=== PATIENT | female | born 1945 | race Caucasian/White ===

== ENCOUNTER 2018-05-25 09:03 | Emergency (ER) | payer MEDICARE, BC ==
--- NOTE | 2018-05-25 09:43 | EDM.PDOC ---
ED HPI GENERAL MEDICAL PROBLEM - General Chief Complaint: Gastrointestinal Problem Stated Complaint: DIARRHEA X3 DAYS Time Seen by Provider: 05/25/18 09:42 - History of Present Illness INITIAL COMMENTS - FREE TEXT/NARRATIVE: 72-year-old female presents with diarrhea. This started on Monday. She multiple loose watery stools nonbloody this continued through Monday started to improve somewhat Monday had a normal day yesterday until late last night where she developed perfuse watery diarrhea multiple episodes. Again nonbloody throughout these episodes she has not had any fevers or chills associated with this. She's not aware of any new exposures. She was on antibiotics a little over a month ago for a dental infection. She has intermittent abdominal cramps and discomfort associated with this Lower Back Pain Score (Numeric/FACES): 7 - Related Data Allergies Allergy/AdvReac Type Severity Reaction Status Date / Time No Known Allergies Allergy Verified 05/25/18 09:19 Home Meds: Home Meds Ascorbic Acid [Vitamin C] 500 mg PO BID 05/25/18 [History] Aspirin 81 mg PO DAILY 05/25/18 [History] Calcium Carbonate/Vitamin D3 [Calcium 600-Vit D3 800 Tab] 1 tab PO BID 05/25/18 [History] Celecoxib [CeleBREX] 200 mg PO DAILY 05/25/18 [History] Cholecalciferol (Vitamin D3) [Vitamin D] 2,000 unit PO DAILY 05/25/18 [History] Past Medical History Musculoskeletal History: Reports: Other (See Below) Other Musculoskeletal History: low back pain - Past Surgical History GI Surgical History: Reports: Appendectomy Musculoskeletal Surgical History: Reports: Other (See Below) Other Musculoskeletal Surgeries/Procedures:: bunion surgery Social & Family History - Family History Family Medical History: Noncontributory - Tobacco Use Smoking Status *Q: Never Smoker Second Hand Smoke Exposure: No - Caffeine Use Caffeine Use: Reports: Coffee - Recreational Drug Use Recreational Drug Use: No ED ROS GENERAL - Review of Systems Review Of Systems: See Below Constitutional: Reports: No Symptoms Respiratory: Reports: No Symptoms Cardiovascular: Reports: No Symptoms GI/Abdominal: Reports: Abdominal Pain, Diarrhea. Denies: Constipation, Nausea, Vomiting : Reports: No Symptoms Neurological: Reports: No Symptoms ED EXAM, GI/ABD - Physical Exam Exam: See Below Exam Limited By: No Limitations General Appearance: Alert, No Apparent Distress Head: Atraumatic, Normocephalic Neck: Normal Inspection, Supple, Non-Tender, Full Range of Motion. No: Lymphadenopathy (L), Lymphadenopathy (R) Respiratory/Chest: No Respiratory Distress, Lungs Clear, Normal Breath Sounds Cardiovascular: Regular Rate, Rhythm, No Edema, No Murmur GI/Abdominal Exam: Normal Bowel Sounds, Soft, Other (Minimal tenderness no rigid guarding or rebound) Back Exam: Normal Inspection. No: CVA Tenderness (L), CVA Tenderness (R) Extremities: Normal Inspection, Redness Neurological: Alert, Oriented Course - Vital Signs Last Recorded V/S: Last Vital Signs Temp 36.7 C 05/25/18 09:15 Pulse 90 05/25/18 09:15 Resp 16 05/25/18 09:15 BP 134/83 05/25/18 09:15 Pulse Ox 96 05/25/18 09:15 - Orders/Labs/Meds Orders: Active Orders 24 hr Category Date Time Status C DIFFICILE BY PCR W/NAP1 [MOLEC] Stat Lab 05/25/18 10:04 Ordered CULTURE STOOL + SHIGATOX [] Stat Lab 05/25/18 09:57 Ordered Lactated Ringers [Ringers, Lactated] 1,000 ml Med 05/25/18 10:00 Active IV ASDIRECTED Medication Orders Lactated Ringer's (Ringers, Lactated) 1,000 mls @ 150 mls/hr IV ASDIRECTED [facility] Labs: Laboratory Tests 05/25/18 05/25/18 05/25/18 Range/Units 10:05 10:05 11:10 WBC 4.27 (3.98-10.04) K/mm3 RBC 4.82 (3.98-5.22) M/mm3 Hgb 15.0 (11.2-15.7) gm/L Hct 45.0 H (34.1-44.9) % MCV 93.4 (79.4-94.8) fl MCH 31.1 (25.6-32.2) pg MCHC 33.3 (32.2-35.5) g/dl RDW Std Deviation 42.6 (36.4-46.3) fL Plt Count 210 (182-369) K/mm3 MPV 10.0 (9.4-12.3) fl Neutrophils % (Manual) 55 (40-60) % Band Neutrophils % 0 (0-10) % Lymphocytes % (Manual) 33 (20-40) % Atypical Lymphs % 0 % Monocytes % (Manual) 10 (2-10) % Eosinophils % (Manual) 2 (0.7-5.8) % Basophils % (Manual) 0 L (0.1-1.2) Platelet Estimate Adequate RBC Morph Comment Normal Sodium 140 (136-145) mEq/L Potassium 3.9 (3.5-5.1) mEq/L Chloride 104 (98-107) mEq/L Carbon Dioxide 21 (21-32) mEq/L Anion Gap 18.9 H (5-15) BUN 22 H (7-18) mg/dL Creatinine 1.4 H (0.55-1.02) mg/dL Est Cr Clr Drug Dosing 26.60 mL/min Estimated GFR (MDRD) 37 (>60) mL/min BUN/Creatinine Ratio 15.7 (14-18) Glucose 84 (83-115) mg/dL Calcium 9.6 (8.5-10.1) mg/dL Total Bilirubin 0.4 (0.2-1.0) mg/dL AST 30 (15-37) U/L ALT 38 (14-59) U/L Alkaline Phosphatase 71 (46-116) U/L Total Protein 8.4 H (6.4-8.2) g/dl Albumin 4.0 (3.4-5.0) g/dl Globulin 4.4 gm/dL Albumin/Globulin Ratio 0.9 L (1-2) Urine Color Yellow (Yellow) Urine Appearance Clear (Clear) Urine pH 5.5 (5.0-8.0) Ur Specific [place] 1.020 (1.005-1.030) Urine Protein 2+ H (Negative) Urine Glucose (UA) Negative (Negative) Urine Ketones 1+ H (Negative) Urine Occult Blood 1+ H (Negative) Urine Nitrite Negative (Negative) Urine Bilirubin 1+ H (Negative) Urine Urobilinogen 0.2 (0.2-1.0) Ur Leukocyte Esterase 1+ H (Negative) Urine RBC 5-10 H (0-5) /hpf Urine WBC 5-10 H (0-5) /hpf Ur Epithelial Cells 10-20 H (0-5) /hpf Urine Bacteria Few (FEW) /hpf Hyaline Casts 10-20 H (0-5) /lpf Urine Mucus Moderate H (FEW) /hpf Meds: Medications Generic Name Dose Route Start Last Admin Trade Name Frefederico PRN Reason Stop Dose Admin Lactated Ringer's 1,000 mls @ 150 mls/hr 05/25/18 10:00 Ringers, Lactated IV ASDIRECTED PORTER Discontinued Medications Generic Name Dose Route Start Last Admin Trade Name Freq PRN Reason Stop Dose Admin Lactated Ringer's 500 mls @ 999 mls/hr 05/25/18 09:58 05/25/18 10:13 Ringers, Lactated IV 05/25/18 10:28 999 mls/hr .BOLUS ONE Administration - Re-Assessments/Exams Free Text/Narrative Re-Assessment/Exam: 05/25/18 12:26 Auditory evaluation unrevealing we have not been able to get a stool culture her urine looks contaminated I did offer to do a catheterization patient declined this. She would like to go home and we will set her up with an outpatient stool study Departure - Departure Time of Disposition: 12:29 Disposition: Home, Self-Care 01 Clinical Impression: Diarrhea - Discharge Information Referrals: Nyla Bell MD [Primary Care Provider] - Forms: ED Department Discharge Additional Instructions: Return to the emergency room with any questions problems worsening symptoms. Return to the lab with your stool specimen when you collect this. Follow-up with your regular provider a couple of days after returning with your stool culture. Try probiotics twice the recommended dose until doing better and then follow the recommended dose for at least a month. - My Orders Last 24 Hours: My Active Orders 05/25/18 09:57 CULTURE STOOL + SHIGATOX [RM] Stat 05/25/18 10:00 Lactated Ringers [Ringers, Lactated] 1,000 ml IV ASDIRECTED 05/25/18 10:04 C DIFFICILE BY PCR W/NAP1 [MOLEC] Stat - Assessment/Plan Last 24 Hours: My Active Orders 05/25/18 09:57 CULTURE STOOL + SHIGATOX [RM] Stat 05/25/18 10:00 Lactated Ringers [Ringers, Lactated] 1,000 ml IV ASDIRECTED 05/25/18 10:04 C DIFFICILE BY PCR W/NAP1 [MOLEC] Stat
[2018-05-25] MEDS ORDERED: Lactated Ringers 500 ML IV ONE (09:58)
[2018-05-25] MEDS ORDERED: Lactated Ringers 1,000 ML IV SCH (10:00)
== END 2018-05-25 13:00 | disposition home or self-care (01) ==
LOC: JD.ED 09:03
DX: R19.7 Diarrhea, unspecified (principal); Z79.82 Long term (current) use of aspirin; Z79.899 Other long term (current) drug therapy
CPT/HCPCS: 36415; 80053; 81001; 85007; 85027; 87046; 87427; 87493; 96365; 96366; 99284; J7120; 99283

== ENCOUNTER 2019-04-03 09:15 | Emergency (ER) | payer MEDICARE, BC ==
--- NOTE | 2019-04-03 10:15 | EDM.PDOC ---
<Celia Marr - Last Filed: 04/03/19 10:41> ED HPI GENERAL MEDICAL PROBLEM - General Chief Complaint: Genitourinary Problem Stated Complaint: DIFFICULTY URINATING Time Seen by Provider: 04/03/19 09:46 Source of Information: Reports: Patient History Limitations: Reports: No Limitations - History of Present Illness INITIAL COMMENTS - FREE TEXT/NARRATIVE: 73-year-old female presents with urinary retention and pelvic cramping for 3 days. She notes that she began drinking plenty of fluids on Monday when she noticed she was having difficulty emptying her bladder. She was concerned that she was dry and possibly developing constipation. She did have a bowel movement on Monday and a small bowel movement yesterday. She describes the urinary retention as an urge to go but feels she is unable to fully empty her bladder. There is no dysuria and she has not noticed any hematuria. She has generalized pelvic pain that she describes as cramping, especially when drinking more water. The patient does have a history of UTIs years ago, but states that her current symptoms do not feel the same as her prior UTIs. She denies flank pain, but does have chronic lower back pain with arthritis, which she is being treated with celebrex. She reported her current symptoms to the [facility] and they informed her she should come to the ED for treatment due to possible urinary stone. The patient does not appear to be in any significant distress. Onset: Gradual (onset Monday ) Duration: Getting Worse Location: Reports: Pelvis Quality: Reports: Other (cramping ) Improves with: Reports: None Worsens with: Reports: None Associated Symptoms: Reports: Loss of Appetite. 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 - Related Data Allergies Allergy/AdvReac Type Severity Reaction Status Date / Time No Known Allergies Allergy Verified 04/03/19 09:38 Home Meds: Home Meds Ascorbic Acid [Vitamin C] 500 mg PO BID 05/25/18 [History] Aspirin 81 mg PO DAILY 05/25/18 [History] Calcium Carbonate/Vitamin D3 [Calcium 600-Vit D3 800 Tab] 1 tab PO BID 05/25/18 [History] Celecoxib [CeleBREX] 200 mg PO DAILY 05/25/18 [History] Cholecalciferol (Vitamin D3) [Vitamin D] 2,000 unit PO DAILY 05/25/18 [History] Levofloxacin [Levaquin] 500 mg PO DAILY #10 tablet 04/03/19 [Rx] metroNIDAZOLE [Flagyl] 500 mg PO Q8H #20 tab 04/03/19 [Rx] Past Medical History Genitourinary History: Reports: UTI, Recurrent (years ago) Musculoskeletal History: Reports: Arthritis, Back Pain, Chronic - Past Surgical History GI Surgical History: Reports: Appendectomy ED ROS GENERAL - Review of Systems Review Of Systems: See Below Constitutional: Reports: Decreased Appetite. Denies: Fever, Chills, Fatigue, Diaphoresis Respiratory: Reports: No Symptoms Cardiovascular: Reports: No Symptoms Endocrine: Reports: No Symptoms GI/Abdominal: Reports: Abdominal Pain (pelvic region and RLQ), Constipation, Decreased Appetite. Denies: Bloody Stool, Diarrhea, Distension, Nausea, Vomiting : Reports: Pain (pelvic, cramping ), Urgency, Urinary Retention. Denies: Dysuria, Flank Pain, Hematuria Musculoskeletal: Reports: Back Pain (lumbar, chronic ), Other (arthritis ) Skin: Reports: No Symptoms Neurological: Reports: No Symptoms Psychiatric: Reports: No Symptoms Hematologic/Lymphatic: Reports: No Symptoms Immunologic: Reports: No Symptoms ED EXAM, RENAL/ - Physical Exam Exam: See Below Exam Limited By: No Limitations General Appearance: Alert, WD/WN, No Apparent Distress Respiratory/Chest: No Respiratory Distress, Lungs Clear, Normal Breath Sounds, No Accessory Muscle Use Cardiovascular: Regular Rate, Rhythm, No Murmur GI/Abdominal: Normal Bowel Sounds, Soft, No Organomegaly, No Distention, Tender (RLQ, pelvic region). No: Guarding, Rigid Back Exam: Normal Inspection, Full Range of Motion. No: CVA Tenderness (L), CVA Tenderness (R) Neurological: Alert, Oriented, Normal Cognition Psychiatric: Normal Affect, Normal Mood Skin Exam: Warm, Dry, Intact, Normal Color, No Rash Course - Vital Signs Last Recorded V/S: Last Vital Signs Temp 97.5 F 04/03/19 09:33 Pulse 105 H 04/03/19 09:33 Resp 18 04/03/19 09:33 BP 118/105 H 04/03/19 09:33 Pulse Ox 98 04/03/19 09:33 - Orders/Labs/Meds Orders: Active Orders 24 hr Category Date Time Status Peripheral IV Care [RC] . DIRECTED Care 04/03/19 11:19 Active CULTURE URINE [RM] Stat Lab 04/03/19 09:29 Received Peripheral IV Insertion Adult [OM.PC] Stat Oth 04/03/19 11:18 Ordered Labs: Laboratory Tests 04/03/19 04/03/19 04/03/19 Range/Units 09:29 10:35 10:35 WBC 14.27 H (3.98-10.04) K/mm3 RBC 4.56 (3.98-5.22) M/mm3 Hgb 13.9 (11.2-15.7) gm/dl Hct 43.6 (34.1-44.9) % MCV 95.6 H (79.4-94.8) fl MCH 30.5 (25.6-32.2) pg MCHC 31.9 L (32.2-35.5) g/dl RDW Std Deviation 42.5 (36.4-46.3) fL Plt Count 312 D (182-369) K/mm3 MPV 9.7 (9.4-12.3) fl Neut % (Auto) 84.1 H (34.0-71.1) % Lymph % (Auto) 10.4 L (19.3-51.7) % [place] % (Auto) 4.8 (4.7-12.5) % Eos % (Auto) 0.4 L (0.7-5.8) Baso % (Auto) 0.1 (0.1-1.2) % Neut # (Auto) 12.00 H (1.56-6.13) K/mm3 Lymph # (Auto) 1.49 (1.18-3.74) K/mm3 [place] # (Auto) 0.68 H (0.24-0.36) K/mm3 Eos # (Auto) 0.05 (0.04-0.36) K/mm3 Baso # (Auto) 0.02 (0.01-0.08) K/mm3 Manual Slide Review Abnormal smear Sodium (136-145) mEq/L Potassium (3.5-5.1) mEq/L Chloride (98-107) mEq/L Carbon Dioxide (21-32) mEq/L Anion Gap (5-15) BUN (7-18) mg/dL Creatinine (0.55-1.02) mg/dL Est Cr Clr Drug Dosing mL/min Estimated GFR (MDRD) (>60) mL/min BUN/Creatinine Ratio (14-18) Glucose (83-115) mg/dL Calcium (8.5-10.1) mg/dL Total Bilirubin (0.2-1.0) mg/dL AST (15-37) U/L ALT (14-59) U/L Alkaline Phosphatase (46-116) U/L C-Reactive Protein 2.0 H* (<1.0) mg/dL Total Protein (6.4-8.2) g/dl Albumin (3.4-5.0) g/dl Globulin gm/dL Albumin/Globulin Ratio (1-2) Urine Color Light yellow (Yellow) Urine Appearance Clear (Clear) Urine pH 6.0 (5.0-8.0) Ur Specific [place] 1.020 (1.005-1.030) Urine Protein Negative (Negative) Urine Glucose (UA) Negative (Negative) Urine Ketones Negative (Negative) Urine Occult Blood Trace-lysed H (Negative) Urine Nitrite Negative (Negative) Urine Bilirubin Negative (Negative) Urine Urobilinogen 0.2 (0.2-1.0) Ur Leukocyte Esterase Negative (Negative) Urine RBC 0-5 (0-5) /hpf Urine WBC 0-5 (0-5) /hpf Ur Epithelial Cells 0-5 (0-5) /hpf Urine Bacteria Rare (FEW) /hpf Hyaline Casts 0-5 (0-5) /lpf Urine Mucus Not seen (FEW) /hpf 04/03/19 Range/Units 10:35 WBC (3.98-10.04) K/mm3 RBC (3.98-5.22) M/mm3 Hgb (11.2-15.7) gm/dl Hct (34.1-44.9) % MCV (79.4-94.8) fl MCH (25.6-32.2) pg MCHC (32.2-35.5) g/dl RDW Std Deviation (36.4-46.3) fL Plt Count (182-369) K/mm3 MPV (9.4-12.3) fl Neut % (Auto) (34.0-71.1) % Lymph % (Auto) (19.3-51.7) % [place] % (Auto) (4.7-12.5) % Eos % (Auto) (0.7-5.8) Baso % (Auto) (0.1-1.2) % Neut # (Auto) (1.56-6.13) K/mm3 Lymph # (Auto) (1.18-3.74) K/mm3 [place] # (Auto) (0.24-0.36) K/mm3 Eos # (Auto) (0.04-0.36) K/mm3 Baso # (Auto) (0.01-0.08) K/mm3 Manual Slide Review Sodium 143 (136-145) mEq/L Potassium 3.5 (3.5-5.1) mEq/L Chloride 104 (98-107) mEq/L Carbon Dioxide 26 (21-32) mEq/L Anion Gap 16.5 H (5-15) BUN 18 (7-18) mg/dL Creatinine 1.1 H (0.55-1.02) mg/dL Est Cr Clr Drug Dosing 31.74 mL/min Estimated GFR (MDRD) 48 (>60) mL/min BUN/Creatinine Ratio 16.4 (14-18) Glucose 102 (83-115) mg/dL Calcium 9.8 (8.5-10.1) mg/dL Total Bilirubin 0.4 (0.2-1.0) mg/dL AST 22 (15-37) U/L ALT 29 (14-59) U/L Alkaline Phosphatase 81 (46-116) U/L C-Reactive Protein (<1.0) mg/dL Total Protein 8.5 H (6.4-8.2) g/dl Albumin 4.0 (3.4-5.0) g/dl Globulin 4.5 gm/dL Albumin/Globulin Ratio 0.9 L (1-2) Urine Color (Yellow) Urine Appearance (Clear) Urine pH (5.0-8.0) Ur Specific [place] (1.005-1.030) Urine Protein (Negative) Urine Glucose (UA) (Negative) Urine Ketones (Negative) Urine Occult Blood (Negative) Urine Nitrite (Negative) Urine Bilirubin (Negative) Urine Urobilinogen (0.2-1.0) Ur Leukocyte Esterase (Negative) Urine RBC (0-5) /hpf Urine WBC (0-5) /hpf Ur Epithelial Cells (0-5) /hpf Urine Bacteria (FEW) /hpf Hyaline Casts (0-5) /lpf Urine Mucus (FEW) /hpf Meds: Medications Discontinued Medications Generic Name Dose Route Start Last Admin Trade Name Freq PRN Reason Stop Dose Admin Diatrizoate Meglum/Diatrizoate Sod 90 ml 04/03/19 11:45 Gastrografin 37% PO 04/03/19 11:46 ONETIME ONE Sodium Chloride 1,000 mls @ 999 mls/hr 04/03/19 11:30 04/03/19 11:30 Normal Saline IV 999 mls/hr ONETIME PORTER Administration Sodium Chloride 100 mls @ 60 mls/hr 04/03/19 11:45 Normal Saline IV ASDIRECTED PORTER Iopamidol 100 ml 04/03/19 11:45 Isovue-300 (61%) IVPUSH 04/03/19 11:46 ONETIME ONE Phenazopyridine HCl 95 mg 04/03/19 11:21 04/03/19 11:31 Urinary Pain Relief PO 04/03/19 11:22 95 mg ONETIME ONE Administration Sodium Chloride 10 ml 04/03/19 11:18 Saline Flush FLUSH ASDIRECTED PRN Keep Vein Open Sodium Chloride 10 ml 04/03/19 11:45 Saline Flush FLUSH 04/03/19 11:46 ONETIME ONE Departure - Departure Disposition: Home, Self-Care 01 Clinical Impression: Diverticulitis - Discharge Information Prescriptions: Levofloxacin [Levaquin] 500 mg PO DAILY #10 tablet metroNIDAZOLE [Flagyl] 500 mg PO Q8H #20 tab Instructions: Diverticulitis Referrals: Nyla Bell MD [Primary Care Provider] - Forms: ED Department Discharge Additional Instructions: Clear liquids and very bland diet as tolerated eating just small amounts of food at a time for the next 2-3 days especially. Than slowly and gradually advance diet as tolerated. Levaquin antibiotic 500 mg daily for 10 days, no antibiotic 500 mg 3 times daily for 1 week or until gone. These prescriptions have been sent [facility] to [facility]. Probiotic twice daily for the next 10 days and then you can safely go back to once daily. Follow-up [facility] in about 5-6 days for recheck. Return to ED as needed if symptoms worsening in any way. Sepsis Event Note - Focused Exam Date Exam was Performed: 04/03/19 Time Exam was Performed: 10:41 - My Orders Last 24 Hours: My Active Orders 04/03/19 09:29 CULTURE URINE [RM] Stat 04/03/19 11:18 Peripheral IV Insertion Adult [OM.PC] Stat 04/03/19 11:19 Peripheral IV Care [RC] . DIRECTED - Assessment/Plan Last 24 Hours: My Active Orders 04/03/19 09:29 CULTURE URINE [RM] Stat 04/03/19 11:18 Peripheral IV Insertion Adult [OM.PC] Stat 04/03/19 11:19 Peripheral IV Care [RC] . DIRECTED <Luis Richard - Last Filed: 04/04/19 07:22> ED HPI GENERAL MEDICAL PROBLEM Abdominal Pain Score (Numeric/FACES): 4 Past Medical History Musculoskeletal History: Reports: Other (See Below) Other Musculoskeletal History: low back pain - Past Surgical History GI Surgical History: Reports: Appendectomy Musculoskeletal Surgical History: Reports: Other (See Below) Other Musculoskeletal Surgeries/Procedures:: bunion surgery Social & Family History - Family History Family Medical History: Noncontributory - Tobacco Use Smoking Status *Q: Never Smoker - Caffeine Use Caffeine Use: Reports: None - Recreational Drug Use Recreational Drug Use: No Course - Orders/Labs/Meds Labs: Laboratory Tests 04/03/19 04/03/19 04/03/19 Range/Units 09:29 10:35 10:35 WBC 14.27 H (3.98-10.04) K/mm3 RBC 4.56 (3.98-5.22) M/mm3 Hgb 13.9 (11.2-15.7) gm/dl Hct 43.6 (34.1-44.9) % MCV 95.6 H (79.4-94.8) fl MCH 30.5 (25.6-32.2) pg MCHC 31.9 L (32.2-35.5) g/dl RDW Std Deviation 42.5 (36.4-46.3) fL Plt Count 312 D (182-369) K/mm3 MPV 9.7 (9.4-12.3) fl Neut % (Auto) 84.1 H (34.0-71.1) % Lymph % (Auto) 10.4 L (19.3-51.7) % [place] % (Auto) 4.8 (4.7-12.5) % Eos % (Auto) 0.4 L (0.7-5.8) Baso % (Auto) 0.1 (0.1-1.2) % Neut # (Auto) 12.00 H (1.56-6.13) K/mm3 Lymph # (Auto) 1.49 (1.18-3.74) K/mm3 [place] # (Auto) 0.68 H (0.24-0.36) K/mm3 Eos # (Auto) 0.05 (0.04-0.36) K/mm3 Baso # (Auto) 0.02 (0.01-0.08) K/mm3 Manual Slide Review Abnormal smear Sodium (136-145) mEq/L Potassium (3.5-5.1) mEq/L Chloride (98-107) mEq/L Carbon Dioxide (21-32) mEq/L Anion Gap (5-15) BUN (7-18) mg/dL Creatinine (0.55-1.02) mg/dL Est Cr Clr Drug Dosing mL/min Estimated GFR (MDRD) (>60) mL/min BUN/Creatinine Ratio (14-18) Glucose (83-115) mg/dL Calcium (8.5-10.1) mg/dL Total Bilirubin (0.2-1.0) mg/dL AST (15-37) U/L ALT (14-59) U/L Alkaline Phosphatase (46-116) U/L C-Reactive Protein 2.0 H* (<1.0) mg/dL Total Protein (6.4-8.2) g/dl Albumin (3.4-5.0) g/dl Globulin gm/dL Albumin/Globulin Ratio (1-2) Urine Color Light yellow (Yellow) Urine Appearance Clear (Clear) Urine pH 6.0 (5.0-8.0) Ur Specific [place] 1.020 (1.005-1.030) Urine Protein Negative (Negative) Urine Glucose (UA) Negative (Negative) Urine Ketones Negative (Negative) Urine Occult Blood Trace-lysed H (Negative) Urine Nitrite Negative (Negative) Urine Bilirubin Negative (Negative) Urine Urobilinogen 0.2 (0.2-1.0) Ur Leukocyte Esterase Negative (Negative) Urine RBC 0-5 (0-5) /hpf Urine WBC 0-5 (0-5) /hpf Ur Epithelial Cells 0-5 (0-5) /hpf Urine Bacteria Rare (FEW) /hpf Hyaline Casts 0-5 (0-5) /lpf Urine Mucus Not seen (FEW) /hpf 04/03/19 Range/Units 10:35 WBC (3.98-10.04) K/mm3 RBC (3.98-5.22) M/mm3 Hgb (11.2-15.7) gm/dl Hct (34.1-44.9) % MCV (79.4-94.8) fl MCH (25.6-32.2) pg MCHC (32.2-35.5) g/dl RDW Std Deviation (36.4-46.3) fL Plt Count (182-369) K/mm3 MPV (9.4-12.3) fl Neut % (Auto) (34.0-71.1) % Lymph % (Auto) (19.3-51.7) % [place] % (Auto) (4.7-12.5) % Eos % (Auto) (0.7-5.8) Baso % (Auto) (0.1-1.2) % Neut # (Auto) (1.56-6.13) K/mm3 Lymph # (Auto) (1.18-3.74) K/mm3 [place] # (Auto) (0.24-0.36) K/mm3 Eos # (Auto) (0.04-0.36) K/mm3 Baso # (Auto) (0.01-0.08) K/mm3 Manual Slide Review Sodium 143 (136-145) mEq/L Potassium 3.5 (3.5-5.1) mEq/L Chloride 104 (98-107) mEq/L Carbon Dioxide 26 (21-32) mEq/L Anion Gap 16.5 H (5-15) BUN 18 (7-18) mg/dL Creatinine 1.1 H (0.55-1.02) mg/dL Est Cr Clr Drug Dosing 31.74 mL/min Estimated GFR (MDRD) 48 (>60) mL/min BUN/Creatinine Ratio 16.4 (14-18) Glucose 102 (83-115) mg/dL Calcium 9.8 (8.5-10.1) mg/dL Total Bilirubin 0.4 (0.2-1.0) mg/dL AST 22 (15-37) U/L ALT 29 (14-59) U/L Alkaline Phosphatase 81 (46-116) U/L C-Reactive Protein (<1.0) mg/dL Total Protein 8.5 H (6.4-8.2) g/dl Albumin 4.0 (3.4-5.0) g/dl Globulin 4.5 gm/dL Albumin/Globulin Ratio 0.9 L (1-2) Urine Color (Yellow) Urine Appearance (Clear) Urine pH (5.0-8.0) Ur Specific [place] (1.005-1.030) Urine Protein (Negative) Urine Glucose (UA) (Negative) Urine Ketones (Negative) Urine Occult Blood (Negative) Urine Nitrite (Negative) Urine Bilirubin (Negative) Urine Urobilinogen (0.2-1.0) Ur Leukocyte Esterase (Negative) Urine RBC (0-5) /hpf Urine WBC (0-5) /hpf Ur Epithelial Cells (0-5) /hpf Urine Bacteria (FEW) /hpf Hyaline Casts (0-5) /lpf Urine Mucus (FEW) /hpf Meds: Medications Discontinued Medications Generic Name Dose Route Start Last Admin Trade Name Freq PRN Reason Stop Dose Admin Diatrizoate Meglum/Diatrizoate Sod 90 ml 04/03/19 11:45 Gastrografin 37% PO 04/03/19 11:46 ONETIME ONE Sodium Chloride 1,000 mls @ 999 mls/hr 04/03/19 11:30 04/03/19 11:30 Normal Saline IV 999 mls/hr ONETIME PORTER Administration Sodium Chloride 100 mls @ 60 mls/hr 04/03/19 11:45 Normal Saline IV ASDIRECTED PORTER Iopamidol 100 ml 04/03/19 11:45 Isovue-300 (61%) IVPUSH 04/03/19 11:46 ONETIME ONE Phenazopyridine HCl 95 mg 04/03/19 11:21 04/03/19 11:31 Urinary Pain Relief PO 04/03/19 11:22 95 mg ONETIME ONE Administration Sodium Chloride 10 ml 04/03/19 11:18 Saline Flush FLUSH ASDIRECTED PRN Keep Vein Open Sodium Chloride 10 ml 04/03/19 11:45 Saline Flush FLUSH 04/03/19 11:46 ONETIME ONE - Re-Assessments/Exams Free Text/Narrative Re-Assessment/Exam: 04/03/19 11:58 Initial hx and exam was done by Fatoumata Alegre PA student. I agree with her hx and exam as documented. I have also interviewed and examined patient. We did do a bladder scan shortly after she voided and her bladder was empty. With her sx of severe urgency and frequency it was expected to find a UTI. However Ua did come back neg for UTI dipstick and micro. Her WBC is elevated at around 14,000 and CRP very mildly elevated at 2. I feel we had better do a CT to look for other potential problems lower abd a pelvis. Pt is agreeable with that. Creat. 1.1, will give liter of NS prior to doing the CT. 04/04/19 07:21. CT came back showing diverticulitis. She is afebrile, eating and drinking OK, she feels up to going home and taking outpatient antibiotics, Will start her on levaquin and cipro. Urine culture also has been done. Departure - Departure Time of Disposition: 14:23 Condition: Fair Sepsis Event Note - Evaluation Sepsis Screening Result: No Definite Risk - Focused Exam Date Exam was Performed: 04/04/19 Time Exam was Performed: 07:21
--- NOTE | 2019-04-03 11:01 | CR ---
Abdomen: Supine and upright views of the abdomen were obtained. Comparison: No previous abdominal x-ray. Scoliosis and degenerative change is noted within the spine. Bowel gas pattern appears normal. No free air is seen. No abnormal calcifications are seen. Impression: 1. Findings as noted above. 2. Nothing acute is seen on two-view abdominal x-ray. Diagnostic code #2 This report was dictated in [place] Standard Time
[2019-04-03] MEDS ORDERED: Sodium Chloride 0.9% 10 ML Syringe FLUSH PRN (11:18)
[2019-04-03] MEDS ORDERED: Phenazopyridine 95 MG Tab PO ONE (11:21)
[2019-04-03] MEDS ORDERED: Sodium Chloride 0.9% 1,000 ML IV SCH (11:30)
[2019-04-03] MEDS ORDERED: Diatrizoate Meglumine/Diatrizoate Sodium 37% 120 ML Bottle PO ONE (11:45)
[2019-04-03] MEDS ORDERED: Sodium Chloride 0.9% 10 ML Syringe FLUSH ONE (11:45)
[2019-04-03] MEDS ORDERED: Iopamidol 612 MG/ML 100 ML Bottle IVPUSH ONE (11:45)
[2019-04-03] MEDS ORDERED: Sodium Chloride 0.9% 100 ML IV SCH (11:45)
--- NOTE | 2019-04-03 13:37 | CT ---
CT abdomen and pelvis Technique: Multiple axial sections were obtained from above the dome of the diaphragm inferiorly through the pubic symphysis. Intravenous and oral contrast was utilized. Delayed images were obtained through the bladder. Comparison: Prior abdominal x-ray performed earlier on the same day, no previous CT abdomen or pelvis study is available. Findings: Visualized lung bases show nothing acute. Liver shows a small low density abnormality within the periphery of the right lobe measuring 7 mm. This is too small to characterize by Hounsfield unit measurements but most likely represents a minimal cyst. Additional second lesion is seen off the periphery of the lower right lobe of the liver measuring 3 mm. This is also too small to characterize by Hounsfield unit measurements but most likely represents an additional cyst. Kidneys show symmetric contrast enhancement. Extrarenal pelves are noted within both kidneys. Delayed images show contrast within the bladder. Spleen appears within normal limits. Adrenal glands show no nodule. Pancreas is within normal limits. Gallbladder contains no calcified gallstones. Aorta shows atherosclerotic change without aneurysm. No pelvic mass or adenopathy is seen. Diverticulosis is noted within the sigmoid colon. Mild inflammatory change is seen around this area of diverticulosis and findings felt compatible with mild diverticulitis. No free fluid is seen. No evidence of diverticular abscess is seen. Bone window settings were reviewed which show diffuse disc space narrowing throughout the spine with endplate sclerosis and osteophytes. Degenerative apophyseal change is also seen within the mid and lower lumbar spine. Impression: 1. Findings compatible with mild sigmoid diverticulitis. No diverticular abscess is seen. 2. Other findings believed to be incidental as described above. Diagnostic code #3 Study was dictated in [place] Standard Time
== END 2019-04-03 14:39 | disposition home or self-care (01) ==
LOC: JD.ED 09:15
DX: K57.32 Diverticulitis of large intestine without perforation or abscess without bleeding (principal); R33.9 Retention of urine, unspecified; Z79.82 Long term (current) use of aspirin; Z90.49 Acquired absence of other specified parts of digestive tract
CPT/HCPCS: 36415; 51798; 74019; 74177; 80053; 81001; 85025; 86140; 87086; 96360; 99284; A9270; J7030; Q9963

== ENCOUNTER 2019-11-25 18:21 | Emergency (ER) | payer MEDICARE, BC ==
--- NOTE | 2019-11-25 19:03 | EDM.PDOC ---
ED HPI GENERAL MEDICAL PROBLEM - General Chief Complaint: Upper Extremity Injury/Pain Stated Complaint: ARM INJURY FROM FALL Time Seen by Provider: 11/25/19 18:42 Source of Information: Reports: Patient History Limitations: Reports: No Limitations - History of Present Illness INITIAL COMMENTS - FREE TEXT/NARRATIVE: Mrs. Fraser is a very pleasant 74-year-old woman who now presents the ED after injuring her left wrist. She states that she slipped and fell around 13:00, and when she did so, she states that she fell backwards, and put her left hand out to brace her fall. While she fell onto her buttocks, she does not complain of any lower back or buttock pain. She did not strike her head. She did not take any [id number] or home remedies prior to coming to the ED, however, the triage note indicates that she presented with a Velcro wrist splint. No prior left wrist injury. Here in the ED, the patient's initial BP was found to be modestly elevated at 151/77, otherwise, she is hemodynamically stable, afebrile, saturating 99% on room air. Other than today's left wrist injury, the patient denies having a recent fever, chills, sore throat, ear pain, nasal or sinus congestion, cough, dyspnea, chest pain, palpitations, nausea, vomiting, constipation, diarrhea, abdominal pain, urinary symptoms, recent weight gain or weight loss, recent bloody bowel movements or black bowel movements, recent joint aches, headaches, or rashes. The patient's PCP is Dr. Nyla Bell, at [facility], however, she also sees RUDY Mckeon, for relatively minor issues. Left Wrist Pain Score (Numeric/FACES): 3 - Related Data Allergies Allergy/AdvReac Type Severity Reaction Status Date / Time No Known Allergies Allergy Verified 11/25/19 18:39 Home Meds: Home Meds Calcium Carbonate/Vitamin D3 [Calcium 600-Vit D3 800 Tab] 1 tab PO BID 05/25/18 [History] Celecoxib [CeleBREX] 200 mg PO DAILY 05/25/18 [History] Loratadine [Claritin] 10 mg PO DAILY PRN 11/25/19 [History] Lutein/Minerals/Vit A,C & E [Ocuvite] 1 tab PO DAILY 11/25/19 [History] Past Medical History Cardiovascular History: Reports: High Cholesterol (untreated) Musculoskeletal History: Reports: Arthritis - Past Surgical History HEENT Surgical History: Reports: Oral Surgery (wisdom teeth extraction) GI Surgical History: Reports: Appendectomy Musculoskeletal Surgical History: Reports: Amputation (left 2nd finger, as a child), Other (See Below) (Left bunionectomy x 1, right bunionectomy x 2) Social & Family History - Family History Family Medical History: Noncontributory - Tobacco Use Smoking Status *Q: Never Smoker Second Hand Smoke Exposure: No - Caffeine Use Caffeine Use: Reports: None - Alcohol Use Alcohol Use History: Yes Alcohol Use Frequency: Socially - Recreational Drug Use Recreational Drug Use: No - Living Situation & Occupation Living situation: Reports: , with Spouse Occupation: Retired Review of Systems - Review of Systems Review Of Systems: Comprehensive ROS is negative, except as noted in HPI. Musculoskeletal: Reports: Back Pain (chronic) ED EXAM, GENERAL - Physical Exam Exam: See Below Exam Limited By: No Limitations General Appearance: Alert, WD/WN, No Apparent Distress Extremities: Other (No visible abnormality to the left wrist, such as swelling, erythema, ecchymosis, abrasion, or deformity. The patient has tenderness prima rily to the distal radius, with no significant tenderness to the distal ulna or proximal carpal bones. 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 Neurovascular status of the left upper extremity is intact.) Course - Vital Signs Last Recorded V/S: Last Vital Signs Temp 36.6 C 11/25/19 18:36 Pulse 92 11/25/19 18:36 Resp 16 11/25/19 18:36 BP 151/77 H 11/25/19 18:36 Pulse Ox 99 11/25/19 18:36 - Orders/Labs/Meds Orders: Active Orders 24 hr Category Date Time Status Wrist Comp Min 3V Lt [CR] Stat Exams 11/25/19 18:57 Taken - Re-Assessments/Exams Free Text/Narrative Re-Assessment/Exam: 11/25/19 18:58 As above, the patient slipped and fell onto an outstretched left hand around 13:00 this afternoon. She has pain along the midline dorsal aspect of her hand and wrist, and tenderness to palpation over the distal radius, but no significant tenderness elsewhere, and there are no visible abnormalities on examination. I have ordered x-rays to evaluate for a distal radius fracture. The patient declined an offer for pain medication at this time. 11/25/19 19:24 5-view radiographs of the left wrist appear to be grossly normal, with osteopenia but no fractures or dislocations seen. Formal read per the Radiologist pending. 11/25/19 19:37 X-ray results discussed with the patient. The patient can continue to wear her Velcro wrist brace as needed. I would like her to ice her left wrist several times a day for the next few days. She can continue to take the Celebrex that she is already on. Departure - Departure Time of Disposition: 19:37 Disposition: Home, Self-Care 01 Condition: Good Clinical Impression: Left wrist sprain - Discharge Information *PRESCRIPTION DRUG MONITORING PROGRAM REVIEWED*: Not Applicable *COPY OF PRESCRIPTION DRUG MONITORING REPORT IN PATIENT SHANIKA: Not Applicable Referrals: Nyla Bell MD [Ordering Only Provider] - Lasha Li PA-C [Physician Film Archivist] - Forms: ED Department Discharge Additional Instructions: You were seen in the ER after slipping and falling, injuring your left wrist. Work-up in the ER included x-rays of the left wrist, which showed some bone thinning, but no broken bones or dislocations. Based on your history, physical exam, and ER x-rays, you have most likely sprained your left wrist. We recommend that you apply an ice pack to the painful part of your wrist for 10 to 15 minutes, up to 5 times a day, for the next 2 to 3 days. You can continue to use the Velcro wrist splint, to avoid further injury, over the next few days. We recommend that you continue to take your previously prescribed Celebrex. If any other problems, please do not hesitate to return to the ER. Sepsis Event Note (ED) - Evaluation Sepsis Screening Result: No Definite Risk - Focused Exam Vital Signs: Vital Signs Temp Pulse Resp BP Pulse Ox 11/25/19 18:36 36.6 C 92 16 151/77 H 99 - My Orders Last 24 Hours: My Active Orders 11/25/19 18:57 Wrist Comp Min 3V Lt [CR] Stat - Assessment/Plan Last 24 Hours: My Active Orders 11/25/19 18:57 Wrist Comp Min 3V Lt [CR] Stat
--- NOTE | 2019-11-25 20:01 | CR ---
Left wrist: 4 views left wrist were obtained. Comparison: No previous wrist study. Slightly impacted fracture is believed to be present within the distal radius involving the metaphysis. Small masha of bone is noted off the ulnar styloid process likely relating to old injury. Soft tissue swelling is noted. Moderate degenerative change within the CMC joint of the thumb. Joint space narrowing noted off the distal navicular bone. Impression: 1. Findings suspicious for slightly impacted distal left radial fracture. 2. Other findings as noted above which are nonacute. Diagnostic code #3 This report was dictated in MDT
== END 2019-11-25 19:49 | disposition home or self-care (01) ==
LOC: JD.ED 18:21
DX: S63.502A Unspecified sprain of left wrist, initial encounter (principal); M19.90 Unspecified osteoarthritis, unspecified site; Z79.899 Other long term (current) drug therapy; W01.0XXA Fall on same level from slipping, tripping and stumbling without subsequent striking against object, initial encounter
CPT/HCPCS: 73110-26-LT; 73110-LT; 99282; 99283-25

== ENCOUNTER 2020-04-21 18:55 | Emergency (ER) | payer MEDICARE, BC ==
--- NOTE | 2020-04-21 20:19 | EDM.PDOC ---
ED HPI GENERAL MEDICAL PROBLEM - General Chief Complaint: Cardiovascular Problem Stated Complaint: LEFT ARM PAIN HIGH BLOOD PRESSURE Time Seen by Provider: 04/21/20 19:15 Source of Information: Reports: Patient, Family () History Limitations: Reports: No Limitations - History of Present Illness INITIAL COMMENTS - FREE TEXT/NARRATIVE: Mrs. Fraser is a pleasant 74-year-old woman with a past medical history significant for untreated dyslipidemia, but with no history of hypertension, as well as a longstanding history of osteoarthritis, primarily involving her hands. She is under the care of a [facility], and has received steroid injections to all of her MCP joints, and there has even been some discussion of joint replacement. In the past, the arthritis in her left hand was worse than her right, and involved some swelling, but she tells me that over the past couple of months, she has also developed some swelling in her right hand. She has been taking celecoxib for years, although she states that it has not been as effective at controlling her pain of late. She states that she saw one of her PCPs recently, and that blood work was performed to evaluate for rheumatoid arthritis, which returned negative. Her other PCP subsequently suggested that she switch from celecoxib to meloxicam, however, the patient did not follow-up on this. The patient would like to follow-up with a [employer] to see what their recommendation for pain management would be. The patient now presents to the ED after developing mid-upper left arm pain yesterday, 04/20/2020. She does not recall suffering any sort of injury or strain to the arm. She states that it is worse today. She is concerned that it is somehow related to an expansion of her hand arthritis. The patient went to the [facility], for evaluation. They found her blood pressure to be elevated. They performed an ECG, finding no abnormalities, nevertheless, they recommended that she come to the ED, expressing concern that she might be suffering from a DVT in her left upper extremity, or a heart attack, or stroke. Because the patient has untreated cholesterol, she is very concerned that she is suffering from a stroke. Here in the ED, the patient's initial BP is found to be elevated at 184/103, however, decreased to the 150s while I was talking to her, without treatment. She is otherwise hemodynamically stable, afebrile, saturating 96% on room air. Other than the patient's chronic arthritic pain in her hands, prior to yesterday, the patient denies having a recent fever, chills, sore throat, ear pain, nasal or sinus congestion, cough, dyspnea, chest pain, palpitations, nausea, vomiting, constipation, diarrhea, abdominal pain, urinary symptoms, recent weight gain or weight loss, recent bloody bowel movements or black bowel movements, headaches, or rashes. The patient's PCP for more significant conditions is Dr. Nyla Bell, at [facility]. Her PCP for less significant conditions is RUDY Mckeon. She does not recall the name of her Orthopedic Surgeon at [facility]. Left Upper Arm Pain Score (Numeric/FACES): 5 - Related Data Allergies Allergy/AdvReac Type Severity Reaction Status Date / Time No Known Allergies Allergy Verified 04/21/20 19:06 Home Meds: Home Meds Calcium Carbonate/Vitamin D3 [Calcium 600-Vit D3 800 Tab] 1 tab PO BID 05/25/18 [History] Celecoxib [CeleBREX] 200 mg PO DAILY 05/25/18 [History] Loratadine [Claritin] 10 mg PO DAILY PRN 11/25/19 [History] Lutein/Minerals/Vit A,C & E [Ocuvite] 1 tab PO DAILY 11/25/19 [History] Past Medical History Cardiovascular History: Reports: High Cholesterol (untreated) Respiratory History: Reports: Sleep Apnea (nightly CPAP 3) Musculoskeletal History: Reports: Fracture (left shoulder), Osteoarthritis - Past Surgical History HEENT Surgical History: Reports: Oral Surgery (dental extractions) GI Surgical History: Reports: Appendectomy Musculoskeletal Surgical History: Reports: Amputation (left 2nd finger as a child), Other (See Below) (Left bunionectomy x 1, Right bunionectomy x 2) Social & Family History - Tobacco Use Tobacco Use Status *Q: Never Tobacco User - Caffeine Use Caffeine Use: Reports: None - Alcohol Use Alcohol Use History: Yes Alcohol Use Frequency: Socially - Recreational Drug Use Recreational Drug Use: No - Living Situation & Occupation Living situation: Reports: , with Spouse Occupation: Retired ED ROS GENERAL - Review of Systems Review Of Systems: Comprehensive ROS is negative, except as noted in HPI. ED EXAM, GENERAL - Physical Exam Exam: See Below Exam Limited By: No Limitations General Appearance: Alert, WD/WN, No Apparent Distress Eye Exam: Bilateral Eye: EOMI, Normal Inspection Ears: Normal External Exam, Hearing Grossly Normal Nose: Normal Inspection Throat/Mouth: Normal Inspection, Normal Lips, Normal Voice, No Airway Compromise Head: Atraumatic, Normocephalic Neck: Normal Inspection, Full Range of Motion Respiratory/Chest: No Respiratory Distress, Lungs Clear, Normal Breath Sounds, No Accessory Muscle Use Cardiovascular: Normal Peripheral Pulses, Regular Rate, Rhythm, No Edema, No Gallop, No JVD, No Murmur, No Rub Peripheral Pulses: 3+: Radial (L), Radial (R) GI/Abdominal: Normal Bowel Sounds, Soft, Non-Tender, No Organomegaly, No Distention, No Abnormal Bruit, No Mass Back Exam: Normal Inspection, Full Range of Motion, NT Extremities: Normal Range of Motion, No Pedal Edema, Normal Capillary Refill, Other (Reproducible tenderness to palpation of the patient's left triceps mu scle. No visible abnormality to the area, such as swelling, erythema, ecchymosis, or abrasion. The circumference of the mid-upper left arm is 25.5 cm. The circumference of the mid-upper right arm is 25.5 cm.) Neurological: Alert, Oriented, Normal Cognition, No Motor/Sensory Deficits Psychiatric: Normal Affect Skin Exam: Warm, Dry, Intact, Normal Color, No Rash #1 Interpretation EKG Date: 04/21/20 Time: 19:21 Rhythm: NSR Rate (Beats/Min): 64 [place]: Normal P-Wave: Present QRS: Normal ST-T: Normal QT: Normal Comparison: NA - No Prior EKG Course - Vital Signs Last Recorded V/S: Last Vital Signs Temp 37.1 C 04/21/20 19:02 Pulse 98 04/21/20 19:02 Resp 16 04/21/20 19:02 BP 184/103 H 04/21/20 19:02 Pulse Ox 96 04/21/20 19:02 - Orders/Labs/Meds Orders: Active Orders 24 hr Category Date Time Status EKG 12 Lead [EK] Stat Ther 04/21/20 19:07 Ordered - Re-Assessments/Exams Free Text/Narrative Re-Assessment/Exam: 04/21/20 20:12 I spoke with the patient at great length regarding her left upper extremity pain and elevated blood pressure. The patient had gone to the [facility] where an ECG was obtained, and she was told that she should come to the ED for evaluation, since her left upper extremity pain might be due to a DVT, heart attack, or stroke. While her initial BP was significantly elevated at 184/103, that is still far short of a level that would require medical treatment, particularly since this is a spurious elevation; the patient states that her BP ordinarily runs low. Additionally, her BP dropped into the 150s while we were talking, without any medical treatment whatsoever. On examination, the patient's left mid-arm pain is reproducible with palpation of her left triceps muscle, indicating a musculoskeletal etiology. Although she does not recall doing it, she likely strained the muscle somehow yesterday or the day before. I reassured her that it has nothing to do with her arthritis (there are no joints in the middle of the arm), nor with a stroke. I explained that strokes cause focal neurologic deficits, but not pain, and certainly not reproducible tenderness. I also explained that while a heart attack can cause radiation of pain to the left upper extremity, it would not cause reproducible tenderness to the arm itself. Additionally, the patient has no other symptoms concerning for an acute IL, and an ECG, obtained at triage, is unremarkable. Lastly, the circumference of the patient's left mid-arm is 25.5 cm, identical to that of her right mid-arm, therefore a DVT in the upper extremity is highly unlikely, particularly because the patient denies any recent instrumentation of her arm. I offered to order a Doppler ultrasound of the arm to evaluate for a DVT, which she eventually declined. I believe I was eventually able to convince the patient that nothing serious is going on, although how she feels after she leaves the ED is questionable. Departure - Departure Time of Disposition: 20:15 Disposition: Home, Self-Care 01 Condition: Good Clinical Impression: Osteoarthritis, Strain of left triceps muscle Instructions: Osteoarthritis, Muscle Strain, [id number] Referrals: Nyla Bell MD [Primary Care Provider] - Lasha Li PA-C [Physician Clerk Typist] - Forms: ED Department Discharge Additional Instructions: You were seen in the emergency room after developing upper left arm pain, with elevated blood pressure noted today. Work-up in the ER included an ECG, which returned essentially normal. There is no suggestion that you are having a heart attack. Your blood pressure significantly improved during your ER visit, without any treatment. Based on your history and physical examination, the cause of your upper left arm pain is due to strain of your triceps muscle. We recommend that you follow-up with your PCP, Dr. Bell, to discuss the option of switching from celecoxib (Celebrex) to meloxicam (Mobic). If any other problems, please do not hesitate to return to the ER. Sepsis Event Note (ED) - Evaluation Sepsis Screening Result: No Definite Risk - Focused Exam Vital Signs: Vital Signs Temp Pulse Resp BP Pulse Ox 04/21/20 19:02 37.1 C 98 16 184/103 H 96 - My Orders Last 24 Hours: My Active Orders 04/21/20 19:07 EKG 12 Lead [EK] Stat - Assessment/Plan Last 24 Hours: My Active Orders 04/21/20 19:07 EKG 12 Lead [EK] Stat
== END 2020-04-21 20:33 | disposition home or self-care (01) ==
LOC: JD.ED 18:55
DX: S46.312A Strain of muscle, fascia and tendon of triceps, left arm, initial encounter (principal); M19.90 Unspecified osteoarthritis, unspecified site; E78.5 Hyperlipidemia, unspecified; Z79.899 Other long term (current) drug therapy; X58.XXXA Exposure to other specified factors, initial encounter
CPT/HCPCS: 93005; 93010; 99283-25; 99284